=== PATIENT | female | born 1985 | race Native Hawaiian/Other Pacific Islander ===

== ENCOUNTER 2018-02-07 08:39 | Outpatient (CLI) | payer OTHER | END 2018-02-07 22:12 | disposition home or self-care (01) | LOC: US 08:39 | DX: R10.11 Right upper quadrant pain (principal) ==

== ENCOUNTER 2021-06-27 08:00 | Outpatient (CLI) | payer BC, OTHER | END 2021-06-27 20:06 | disposition home or self-care (01) | LOC: RAD 08:00 | PROVIDERS: ATTEND Physician Assistant | DX: U07.1 COVID-19 (principal); R06.00 Dyspnea, unspecified; R63.5 Abnormal weight gain ==

== ENCOUNTER 2021-11-01 13:29 | Emergency (ER) | payer BC ==
[~2021-11-01] VITALS: Ht 157.5 cm; Wt 85.3 kg
[2021-11-01 13:41] VITALS: TEMP 98.7
[2021-11-01 14:07] LABS: PLATELET COUNT 339 K/uL (152-353)
[2021-11-01 14:13] LABS: POTASSIUM 3.9 mmol/L (3.6-5.2)
[2021-11-01 16:16] VITALS: BP 132/64
== END 2021-11-01 16:16 | disposition home or self-care (01) ==
LOC: ED 13:29
PROVIDERS: Hospitalist
DX: K29.70 Gastritis, unspecified, without bleeding (principal); R11.2 Nausea with vomiting, unspecified
CPT/HCPCS: 36415; 80053; 81000; 81025; 83690; 85027; 96360; 96375; 99284; J2405

== ENCOUNTER 2023-02-04 10:31 | Outpatient (CLI) | payer BC | END 2023-02-04 19:50 | disposition home or self-care (01) | LOC: CT 10:31 | PROVIDERS: ATTEND Physician Assistant | DX: R10.31 Right lower quadrant pain (principal) | CPT/HCPCS: Q9963 ==